=== PATIENT | male | born 1955 | race Caucasian/White ===

== ENCOUNTER 2023-10-28 21:44 | Emergency (ER) | payer OTHER, SELFPAY ==
[2023-10-28 21:46] VITALS: BP 139/81
[2023-10-28 22:03] LABS: % Basophils 0.5 % (0-2); % Eosinophils 2.1 % (0-6); % Immature Granulocytes 0.3 % (0-0.5); % Lymphocytes 18.1 % (20.5-51.1); % Monocytes 7.1 % (1.7-9.3); % Neutrophils 71.9 % (42.2-75.2); Absolute Eosinophils 0.2 10^3/uL (0-0.7); Absolute Lymphocytes 1.4 10^3/uL (1.2-3.4); Absolute Monocytes 0.6 10^3/uL (0.1-0.6); Absolute Neutrophils 5.6 10^3/uL (1.4-6.5); Hematocrit 44.3 % (39.0-52.0); Hemoglobin 15.2 g/dL (13.0-18.0); Mean Corp Hgb Conc. 34.3 g/dL (33.0-37.0); Mean Corpuscular Hgb 31.6 pg (27.0-31.0); Mean Corpuscular Volume 92.1 fL (80.0-94.0); Mean Platelet Volume 10.7 fL (7.4-10.4); Nucleated Red Blood Cells % 0 % (-); Platelet Count 188 10^3/uL (130-400); Red Blood Cell Count 4.81 10^6/uL (4.70-6.10); Red Cell Dist. Width 13.4 % (11.5-14.5); White Blood Cell Count 7.8 10^3/uL (4.8-10.8)
[2023-10-28 22:14] LABS: APTT 25.8 Sec (23.4-35.0)
[2023-10-28 22:17] LABS: ALT (SGPT) 18 U/L (0-50); AST (SGOT) 25 U/L (17-59); Albumin 4.2 g/dl (3.5-5.0); Alkaline Phosphatase 67 U/L (38-126); Blood Urea Nitrogen 22 mg/dl (9-20); Calcium 9.2 mg/dl (8.4-10.2); Carbon Dioxide 24 mmol/L (22-30); Chloride 106 mmol/L (98-107); Glucose 160 mg/dl (70-99); Lipase 264 U/L (23-300); Potassium 4.2 mmol/L (3.5-5.1); Sodium 137 mmol/L (135-145); Total Bilirubin 0.6 mg/dl (0.2-1.3); eGFR > 60.00
[2023-10-28 22:28] LABS: Troponin I < 0.012 ng/ml
[2023-10-28 23:04] VITALS: BP 136/83
[2023-10-29] VITALS: BP 132/80
--- NOTE | 2023-10-29 | ED.GENMED ---
History of Present Illness
General
Chief Complaint: Fainting/Passed Out
Time Seen by Provider: 10/28/23 23:44
Travel History
Have you had any contact with someone who has COVID-19?: No
Do you have any symptoms of coronavirus? Fever > 100 degrees, chills, cough, shortness of breath, sore throat, loss of taste or smell, muscle aches, or headache?: No
History of Present Illness
History of Present Illness:
68 yo male w/ hx of HTN presents for evaluation of a syncopal event. He apparently was taking a nap on the couch, abruptly woke up feeling unwell, stood up and became profoundly dizzy, followed by a witnessed syncopal event. Was lowered back to the
cough by his spouse. On arrival to the ED by EMS, he has no further complaints. No hx of syncope. Does take losartan for HTN. No palpitations or chest pain prior to syncope.
Past History
Past History
ED Past Medical History: Hypercholesterolemia
Social History
Tobacco: Non-smoker
Alcohol: Occasional
Personal:
Living: with family
Employment: Employed
Review of Systems
Review of Systems
Allergies reviewed?: Yes
All Other Systems: ROS reviewed and negative except as documented in HPI and ROS
Phy Exam
Physical Exam
Physical Exam:
GEN: Well appearing, NAD, WDWN
HEENT: Oral mucosa moist, no scleral icterus
Cardiac: Regular rate and rhythm, no murmurs
Lung: No respiratory distress, no tachypnea
MSK: No gross deformity or injuries
Skin: Good color, no pallor or jaundice, no rashes
Neuro: AO x3, moves all extremities freely, CN II-XII grossly intact
Psych: Calm, cooperative
Course
Orders/Labs/Results
Orders:
Orders
10/28/23 21:50
Electrocardiogram (*1) Urgent
Reason for Study: Syncope
CT Head W/o Iv Contrast Urgent
Comment:
Reason For Exam: syncope
EKG- Treatment ONCE
CR Chest - 2 Views Urgent
Comment:
Reason For Exam: syncope
10/28/23 21:55
Complete Blood Count/With Diff Urgent
Comprehensive Metabolic Panel Urgent
Lipase Urgent
Troponin I Urgent
10/28/23 21:56
PTT Urgent
Abnormal Lab Results
10/28/23
21:55
MCH 31.6 H pg
(27.0-31.0)
MPV 10.7 H fL
(7.4-10.4)
Lymphocytes % 18.1 L %
(20.5-51.1)
BUN 22 H mg/dl
(9-20)
Glucose 160 H mg/dl
(70-99)
10/28/23 21:55
10/28/23 21:55
Vital Signs
Initial and Last Documented VS:
Initial Vital Signs
Temp Pulse Resp BP Pulse Ox
98.0 F 76 20 139/81 97
10/28/23 21:46 10/28/23 21:46 10/28/23 21:46 10/28/23 21:46 10/28/23 21:46
Last Documented Vital Signs
Temp Pulse Resp BP Pulse Ox
98.0 F 62 14 132/80 93
10/28/23 21:46 10/29/23 00:00 10/29/23 00:00 10/29/23 00:00 10/29/23 00:00
MDM/Problems Addressed
MDM/Problems Addressed:
Likely a vasovagal event, workup in the ED is reassuring. No prodrome of palpitations to suggest cardiac dysrhythmia. EKG reassuring, no events on telemetry. No indication for admission
Comment
Comment:
EKG independently interpreted by me shows NSR rate of 74 without ischemic changes
*Critical Care Note
Total Time (30-74mins, 75-104mins- exclusive of procedures): Not Applicable
ED Attending Note
-
Portions of this chart may have been created with voice recognition software.� Occasional wrong word or��sound alike� substitutions may have occurred due to the inherent limitations of voice recognition software.
Discharge Plan
Departure
Patient Disposition: Home (Routine Discharge)
Date of Disposition: 10/29/23
Time of Disposition: 00:00
Patient with high blood pressure during this ER visit?: No
Discharge Problem:
Syncope
Instructions: Syncope (Fainting) (DC)
Prescriptions:
No Action
doxycycline hyclate 100 MG capsule
100 mg PO Q12 Qty: 19 0RF
Referrals:
Emy Barnes MD [Family Provider] -
Interventions
Interventions:
*Risk Screen - Suicide Last Done: 10/28/23 21:46
*General Assessment Last Done: 10/28/23 21:46
*Neglect/Abuse Screening Last Done: 10/28/23 21:46
ED- Fall Risk Assessment Last Done: 10/29/23 00:11
*ED COVID-19 Vaccine History Last Done: 10/29/23 00:11
*Nursing Disposition Last Done: 10/29/23 00:11
ED- Cardiac Assessment Last Done: 10/28/23 23:07
ED- Neurological Assessment Last Done: 10/28/23 23:07
Discharge Date and Time
Discharge Date/Time: 10/29/23 00:11
== END 2023-10-29 00:11 | disposition home or self-care (01) ==
LOC: EMR 21:44
PROVIDERS: Emergency Medicine; EMERGENCY PHYSICIAN Emergency Medicine; FAMILY PHYSICIAN Internal Medicine
DX: R55 Syncope and collapse (principal); R05.9 Cough, unspecified; R42 Dizziness and giddiness; I10 Essential (primary) hypertension
CPT/HCPCS: 99285; 70450; 71046; 80053; 83690; 84484; 85025; 85730; 93005; 99284